=== PATIENT | male | born 1995 | race Caucasian/White ===

== ENCOUNTER 2018-06-06 17:11 | Emergency (ER) | payer OTHER ==
[~2018-06-06] VITALS: Ht 175.3 cm; Wt 72.6 kg
[2018-06-06] MEDS ORDERED: NORCO 5-325 TA1 EAC1 PO (18:29)
[2018-06-06] MEDS ORDERED: KEFLEX500 M1 PO (18:29)
[2018-06-06 18:55] VITALS: BP 126/72
== END 2018-06-06 18:56 | disposition home or self-care (01) ==
LOC: M.ERS 17:11
DX: S61.217A Laceration without foreign body of left little finger without damage to nail, initial encounter (principal); S62.637A Displaced fracture of distal phalanx of left little finger, initial encounter for closed fracture; W19.XXXA Unspecified fall, initial encounter; Y93.89 Activity, other specified; Y92.89 Other specified places as the place of occurrence of the external cause; Y99.8 Other external cause status; Z88.1 Allergy status to other antibiotic agents